=== PATIENT | male | born 1965 | race African-American/Black ===

== ENCOUNTER 2022-01-06 17:22 | Emergency (ER) | payer OTHER ==
[~2022-01-06] VITALS: Ht 177.8 cm; Wt 80.0 kg
[2022-01-06 17:29] VITALS: BP 116/76
== END 2022-01-06 23:30 | disposition left against medical advice (07) ==
LOC: ER 17:22
DX: Z53.21 Procedure and treatment not carried out due to patient leaving prior to being seen by health care provider (principal)